=== PATIENT | female | born 1990 | race Caucasian/White ===

== ENCOUNTER 2016-08-01 23:00 | Outpatient (CLI) | payer BC ==
[~2016-08-01 23:00] MED LIST: FLEXERIL10 MG PO; HYDROCODON-ACE1 EAC7 PO; MOTRIN600 MG PO
[2016-08-02 00:14] VITALS: BP 107/55
[2016-08-02] MEDS ORDERED: PRENATAL TABLE1 EAC3 PO (00:25)
== END 2016-08-02 00:44 | disposition home or self-care (01) ==
LOC: LDRP-OP 23:00 → 2WEST 23:01
DX: O36.8130 Decreased fetal movements, third trimester, not applicable or unspecified (principal); O99.89 Other specified diseases and conditions complicating pregnancy, childbirth and the puerperium; Z3A.31 31 weeks gestation of pregnancy
CPT/HCPCS: 59025; G0378

== ENCOUNTER 2016-10-03 07:29 | Inpatient (IN) | payer BC ==
[2016-10-03] VITALS (16 sets, daily range): BP systolic 98–159; BP diastolic 54–81
[~2016-10-03] VITALS: Ht 167.6 cm; Wt 117.9 kg
[~2016-10-03 07:29] MED LIST changes: +PRENATAL TABLE1 EAC3 PO
[2016-10-03 09:07] LABS: EOSINOPHIL (%) 0.1 % (0-5); HEMATOCRIT 33.8 % (36.0-46.0); IMMATURE GRANULOCYTE (%) 0.6 % (0.0-0.7); IMMATURE GRANULOCYTE COUNT 0.1 K/uL; INSTRUMENT ABS NEUTROPHIL CT 8.7 K/uL; LYMPHOCYTE COUNT 0.9 K/uL (1.0-2.8); MCH 27.6 PG (29.0-34.0); MCV 86.2 FL (83-99); MEAN PLAT.VOLUME 10.5 uM^3 (9.5-12.4); MONOCYTE (%) 3.6 % (3-12); MONOCYTE COUNT 0.4 K/uL (0-0.8); NEUTROPHIL COUNT 8.7 K/uL (1.8-6.4); PLATELET COUNT 289 K/uL (156-360); RBC DIS.WIDTH-CV 13.4 % (11.8-14.6); RBC DIS.WIDTH-SD 41.8 % (39-53); RED BLOOD COUNT 3.92 M/uL (3.80-5.20)
[2016-10-03] MEDS ORDERED: IBUPROFEN800 MG PO (17:10)
[2016-10-04 07:43] VITALS: BP 108/65
[2016-10-04 14:38] VITALS: BP 115/64
[2016-10-05 07:30] VITALS: BP 105/56
== END 2016-10-05 12:56 | disposition home or self-care (01) | DRG 775 ==
LOC: LDRP-OP 07:29 → 2WEST 07:30 → LDRP-OP 10-30 00:51
PROVIDERS: Nurse Practitioner
PROC: 10907ZC Drainage of Amniotic Fluid, Therapeutic from Products of Conception, Via Natural or Artificial Opening (ICD-10-PCS; principal; 2016-10-03)
PROC: 10E0XZZ Delivery of Products of Conception, External Approach (ICD-10-PCS; 2016-10-03)
DX: O99.824 Streptococcus B carrier state complicating childbirth (principal); O99.214 Obesity complicating childbirth; E66.9 Obesity, unspecified; Z68.36 Body mass index [BMI] 36.0-36.9, adult; Z3A.40 40 weeks gestation of pregnancy; Z37.0 Single live birth
CPT/HCPCS: 85025; J2540; J7120